=== PATIENT | female | born 1960 | race Two or more races ===

== ENCOUNTER 2017-11-11 10:37 | Outpatient (CLI) | payer OTHER | END 2017-11-11 10:51 | disposition home or self-care (01) | LOC: NUCLEAR 10:37 | DX: M81.0 Age-related osteoporosis without current pathological fracture (principal) ==

== ENCOUNTER 2017-11-11 12:35 | Outpatient (CLI) | payer OTHER | END 2017-11-11 12:40 | disposition home or self-care (01) | LOC: RAD 12:35 | DX: Z12.31 Encounter for screening mammogram for malignant neoplasm of breast (principal); N60.11 Diffuse cystic mastopathy of right breast; N60.12 Diffuse cystic mastopathy of left breast; M25.551 Pain in right hip; M25.552 Pain in left hip; M54.5 Low back pain | CPT/HCPCS: 72148 ==